=== PATIENT | male | born 1965 | race Caucasian/White ===

== ENCOUNTER 2017-08-07 00:30 | Inpatient (IN) ==
[2017-08-07] MEDS ORDERED: ASPIRIN 325 MG TABLET PO STA (00:49)
[2017-08-07] MEDS ORDERED: ASPIRIN 325 MG TABLET ONE (00:55)
[2017-08-07 01:32] LABS: Bilirubin,Total 0.5 MG/DL (0.2-1.0); Calcium 8.9 MG/DL (8.5-10.1); Osmolality,Calculated 277.5 MOS/KG (273-304); Potassium 4.1 MMOL/L (3.5-5.1); Total Protein 7.3 G/DL (6.4-8.3)
[2017-08-07] MEDS ORDERED: ONDANSETRON 4 MG/2 ML VIAL IV PRN (04:12)
[2017-08-07] MEDS: SODIUM CHLORIDE 0.9% 1,000 ML IV SCH ×3 (04:25→20:00)
[2017-08-07 06:38] LABS: Basophils % 0.2 % (0.0-0.8); Eosinophils # 0.1 10*3/uL (0.0-0.87); Eosinophils % 0.5 % (0.00-10.9); Hematocrit 38.3 VOL% (42.0-52.0); Hemoglobin 13.3 GM/DL (14.0-18.0); Immature Granulocytes % 0.3 %; Immature Granulocytes Absolute 0.03 #; Lymphocytes # 1.1 10*3/uL (1.4-4.0); Lymphocytes % 11.8 % (21.2-54.2); Mean Corpuscular HGB Conc 34.7 GM/DL (32-36); Mean Corpuscular Hemoglobin 30 PG (27-34); Mean Corpuscular Volume 86.7 FL (87-102); Mean Platelet Volume 10.3 FL (9.6-12.0); Monocytes # 0.6 10*3/uL (0.11-0.8); Neutrophils # 7.7 10*3/uL (1.4-7.4); Neutrophils % 81.2 % (38.7-73.9); Platelet Count 203 T/CUMM (130-400); Red Blood Count 4.42 MC/CUMM (3.8-5.5); Red Cell Distribution Width 12.2 % (9.3-17.3); White Blood Count 9.5 T/CUMM (4-12)
[2017-08-07 07:11] LABS: Magnesium 2.1 MG/DL (1.8-2.4); Risk Ratio 3.6; VLDL CHOLESTEROL 19.6 MG/DL
[2017-08-07] MEDS: PANTOPRAZOLE 40 MG TABLET PO SCH (09:45)
[2017-08-07] MEDS: ENOXAPARIN 40 MG/0.4 ML SYRINGE SUBCUT SCH (09:45)
[2017-08-08] MEDS: SODIUM CHLORIDE 0.9% 1,000 ML IV SCH (03:46)
[2017-08-08 06:20] LABS: Albumin 3.3 G/DL (3.4-5.0); Bilirubin,Direct 0.18 MG/DL (0.0-0.20); Bilirubin,Indirect 0.8 MG/DL (0.0-1.0); Total Protein 6.1 G/DL (6.4-8.3)
[2017-08-08 07:30] VITALS: BP 123/65
[2017-08-08] MEDS: ENOXAPARIN 40 MG/0.4 ML SYRINGE SUBCUT SCH (08:33)
[2017-08-08] MEDS: PANTOPRAZOLE 40 MG TABLET PO SCH (08:33)
== END 2017-08-08 12:30 | disposition home or self-care (01) | DRG 440 ==
LOC: N.ED 00:30 → N.EDINP 02:41 → N.5E 03:18
PROVIDERS: ADMIT Internal Medicine; ATTEND Internal Medicine

== ENCOUNTER 2017-08-11 08:31 | Observation (INO) ==
[2017-08-11] MEDS ORDERED: ONDANSETRON 4 MG/2 ML VIAL IV PRN ×2 (08:59→12:40)
[2017-08-11] MEDS ORDERED: SODIUM CHLORIDE 0.9% 1,000 ML IV SCH (09:00)
[2017-08-11] MEDS: SODIUM CHLORIDE 0.9% 1,000 ML IV SCH ×2 (09:12→14:50)
[2017-08-11 09:19] LABS: PT Patient Result 10.9 SECS
[2017-08-11] MEDS ORDERED: INDOMETHACIN SUPP 50 MG SUPP RECTAL ONE (10:33)
[2017-08-11] MEDS ORDERED: MEPERIDINE 25 MG/1 ML VIAL IV ONE (12:28)
[2017-08-11] MEDS ORDERED: MEPERIDINE 50 MG/1 ML VIAL ONE (12:31)
[2017-08-11] MEDS ORDERED: MAGNESIUM HYDROXIDE SUSP 30 ML UDCUP PO PRN (12:40)
[2017-08-11] MEDS ORDERED: ACETAMINOPHEN 325 MG TABLET PO PRN (12:40)
[2017-08-11] MEDS ORDERED: HYDROmorphone 2 MG/1 ML VIAL IV PRN ×2 (12:43)
[2017-08-11] MEDS ORDERED: LIDOCAINE 100 MG/5 ML SYRINGE ONE (15:34)
[2017-08-11] MEDS ORDERED: PROPOFOL 200 MG/20 ML VIAL IV ONE (15:34)
[2017-08-12] MEDS: SODIUM CHLORIDE 0.9% 1,000 ML IV SCH ×2 (03:24→09:53)
[2017-08-12 05:22] LABS: Albumin 3.3 G/DL (3.4-5.0); Bilirubin,Total 0.8 MG/DL (0.2-1.0); Osmolality,Calculated 279.3 MOS/KG (273-304); Potassium 3.9 MMOL/L (3.5-5.1)
[2017-08-12 10:48] VITALS: BP 126/73
[2017-08-12] MEDS ORDERED: ESCITALOPRAM 10 MG TABLET PO SCH (21:00)
[2017-08-12] MEDS ORDERED: SIMVASTATIN 10 MG TABLET PO SCH (21:00)
[2017-08-12] MEDS ORDERED: ATENOLOL 25 MG TABLET PO SCH (21:00)
== END 2017-08-12 10:55 | disposition home or self-care (01) ==
LOC: N.GILAB 08:31 → N.3E 08:31
PROVIDERS: ADMIT Internal Medicine Gastroenterology; ATTEND Internal Medicine Gastroenterology
PROC: ERCPWSP (ICD-10-PCS; 2017-08-11 09:05)